=== PATIENT | female | born 1975 ===

== ENCOUNTER 2024-01-25 08:13 | Inpatient (IN) | payer OTHER ==
[~2024-01-25] VITALS: Ht 154.9 cm; Wt 68.0 kg
[2024-01-25] MEDS ORDERED: QULIPTA30 MG PO (08:40)
[2024-01-25] MEDS ORDERED: NARATRIPTAN HC2.5 MG PO (08:40)
[2024-01-25 09:30] LABS: PH,URINE 5.5 (5.0-8.0); URINE APPEARANCE Clear; URINE BILIRRUBIN Negative (NEGATIVE); URINE BLOOD Negative; URINE COLOR Yellow; URINE GLUCOSE Negative (NEGATIVE); URINE KETONE Negative (NEGATIVE); URINE LEUKOCYTE Negative; URINE NITRATE Negative; URINE PROTEIN Negative (NEGATIVE); URINE UROBILINOGEN 0.2 E.U./dl
[2024-01-25 09:35] LABS: URINE BACTERIA 430.7 uL (0.0-1933); URINE EPITHELIAL CELLS 15.2 uL (0.0-38.8); URINE WBC 40.1 uL (0.0-23.2)
[2024-01-25 09:36] LABS: HEMOGLOBIN 10.6 g/dL (12.0-15.00); MEAN CELL VOLUME 77.6 fL (80.00-100.00); MEAN CORPUSCULAR HGB CONC 32.3 g/dl (32.0-36.0); PLATELET COUNT 482 K/uL (150-450); RED BLOOD COUNT 4.25 M/uL (4.00-6.00); RED CELL DISTRIBUTION WIDTH 15.5 % (11.5-14.5)
[2024-01-25 09:58] LABS: PARTIAL THROMBOPLASTIN TIME 25.7 SECONDS (22.0-34.0); PROTHROMBIN TIME 10.9 SECONDS (9.0-11.5)
[2024-01-25 10:33] LABS: ALBUMIN 3.7 gm/dL (3.4-5.0); BILIRUBIN TOTAL 0.38 mg/dL (0.3-1.2); CALCIUM 9.2 mg/dL (8.5-10.1); CREATININE SERUM 0.64 mg/dL (0.55-1.02); GFR 99.47; GLOBULINA 3.8 G/DL (2.4-3.5); POTASSIUM 4.5 mEq/L (3.5-5.1); TOTAL PROTEIN 7.5 gm/dL (6.4-8.2)
[2024-01-25 10:36] LABS: TSH 4.93 uIU/mL (0.358-3.74)
[2024-01-31] MEDS ORDERED: CEFOXITIN SODIUM 2,000 MG VIAL IV ONE (09:15)
[2024-01-31] MEDS ORDERED: POVIDONE-IODINE 118 ML BOTT TOP ONE (09:15)
[2024-01-31] MEDS ORDERED: SIMETHICONE 125 MG CAPSULE PO SCH (10:15)
[2024-01-31] MEDS ORDERED: RINGERS SOLUTION,LACTATED 1,000 ML IV SCH (10:15)
[2024-01-31] MEDS ORDERED: MORPHINE SULFATE 4 MG/ML VIAL IV ONE (10:55)
[2024-01-31] MEDS ORDERED: PROMETHAZINE HCL 50 MG/ML AMPUL IV ONE (11:25)
[2024-01-31] MEDS ORDERED: MEPERIDINE HCL 50 MG/ML AMPUL IV ONE (11:25)
[2024-01-31] MEDS ORDERED: PROMETHAZINE HCL 50 MG/ML AMPUL IV SCH (12:00)
[2024-01-31] MEDS ORDERED: MEPERIDINE HCL/PF 50 MG/ML VIAL IV SCH (12:00)
[2024-01-31 13:01] LABS: HEMATOCRIT 32.5 % (36.0-45.00); HEMOGLOBIN 10.3 g/dL (12.0-15.00); MEAN CELL VOLUME 78.4 fL (80.00-100.00); MEAN CORPUSCULAR HEMOGLOBIN 24.9 pg (27.00-32.0); MEAN CORPUSCULAR HGB CONC 31.7 g/dl (32.0-36.0); PLATELET COUNT 476 K/uL (150-450); RED BLOOD COUNT 4.15 M/uL (4.00-6.00); RED CELL DISTRIBUTION WIDTH 15.6 % (11.5-14.5)
[2024-01-31 14:32] VITALS: BP 128/88
[2024-01-31 17:04] VITALS: BP 130/82
[2024-02-01 00:27] VITALS: BP 133/86
[2024-02-01 08:00] VITALS: BP 130/80
[2024-02-01] MEDS ORDERED: ACETAMINOPHEN WITH CODEINE 1 UDTAB TABLET PO PRN (09:15)
[2024-02-01] MEDS ORDERED: NAPROXEN 500 MG TABLET PO NR (10:00)
[2024-02-01 13:00] VITALS: BP 140/85
[2024-02-01] MEDS ORDERED: NAPROXEN 500 MG TABLET PO SCH (17:00)
[2024-02-01 17:06] VITALS: BP 121/79
[2024-02-01 20:31] VITALS: BP 135/89
[2024-02-02] VITALS: BP 108/69
[2024-02-02 07:41] VITALS: BP 123/81
[2024-02-02 14:30] VITALS: BP 130/80
[2024-02-02 16:00] VITALS: BP 131/77
[2024-02-03] VITALS: BP 129/77
[2024-02-03 08:00] VITALS: BP 131/81
[2024-02-03] MEDS ORDERED: NAPR500T14 PO (11:10)
[2024-02-03] MEDS ORDERED: Tylenol #3 PO (11:10)
== END 2024-02-03 14:12 | disposition home or self-care (01) | DRG 743 ==
LOC: O/R 01-31 05:33 → SURH 01-31 07:00 → OB/GYN 01-31 11:54
PROVIDERS: ADMIT Obstetrics & Gynecology; ATTEND Obstetrics & Gynecology
PROC: 0UT70ZZ Resection of Bilateral Fallopian Tubes, Open Approach (ICD-10-PCS; 2024-01-31)
PROC: 0UT20ZZ Resection of Bilateral Ovaries, Open Approach (ICD-10-PCS; 2024-01-31)
PROC: 0TJB8ZZ Inspection of Bladder, Via Natural or Artificial Opening Endoscopic (ICD-10-PCS; 2024-01-31)
PROC: 0UT90ZZ Resection of Uterus, Open Approach (ICD-10-PCS; principal; 2024-01-31 07:00)
DX: D25.1 Intramural leiomyoma of uterus (principal); D25.2 Subserosal leiomyoma of uterus; D25.0 Submucous leiomyoma of uterus; N84.1 Polyp of cervix uteri; N80.03 Adenomyosis of the uterus; N81.11 Cystocele, midline; Z20.822 Contact with and (suspected) exposure to COVID-19; N92.0 Excessive and frequent menstruation with regular cycle; D64.9 Anemia, unspecified